=== PATIENT | female | born 1995 | race Two or more races ===

== ENCOUNTER 2016-10-29 05:30 | Inpatient (IN) | payer MEDICAID ==
[2016-10-29 06:06] VITALS: BP 105/75
[2016-10-29] MEDS ORDERED: Maalox 30 mL Cup PO PRN (10:38)
[2016-10-29] MEDS ORDERED: Morphine Sulfate 2 mg/mL 1mL Syr IVP PRN (10:38)
[2016-10-29] MEDS: D5-0.45NS 1,000 ML IV SCH ×2 (11:08→22:40)
[2016-10-29] MEDS: Ampicillin Sodium/Sulbactam 3 GM in Sodium Chloride 0.9% 100 ML IV SCH ×2 (14:02→22:37)
--- NOTE | 2016-10-29 17:54 | Internal Medicine Prog Note ---
Internal Medicine Subjective - Subjective Service Date: 10/29/16 ([facility] [id number]) Internal Medicine Objective - Physical Exam Vitals and I&O: Vital Signs Temp 98.9 F 10/29/16 16:00 Pulse 102 10/29/16 16:00 Resp 18 10/29/16 16:00 BP 120/73 10/29/16 16:00 Pulse Ox 99 10/29/16 16:00 Intake & Output 10/28/16 10/29/16 10/29/16 18:59 06:59 18:59 Intake Total 100 Balance 100 Weight (lbs) 179 lb Intake: Oral 100 Other: # Voids 1 Active Medications: Current Medications Al Hydrox/Mg Hydrox/Simethicone (Maalox) 30 ml PO Q6HR PRN PRN Reason: Constipation Stop: 12/28/16 10:37 Heparin Sodium (Porcine) (Heparin) 5,000 units SUBQ Q12HR [facility] Stop: 12/28/16 20:59 Dextrose/Sodium Chloride (D5-0.45ns) 1,000 mls @ 100 mls/hr IV .Q10H [facility] Stop: 12/28/16 09:35 Last Admin: 10/29/16 11:08 Dose: 100 mls/hr Ampicillin Sodium/Sulbactam (Sodium 3 gm/ Sodium Chloride) 100 mls @ 100 mls/ hr IV Q8HRT [facility] Stop: 12/28/16 14:59 Last Admin: 10/29/16 14:02 Dose: 100 mls/hr Ibuprofen (Motrin) 400 mg PO TID PRN PRN Reason: Fever > 101 Stop: 12/28/16 13:59 Morphine Sulfate (Morphine) 2 mg IVP Q4HR PRN PRN Reason: Pain (Moderate) Stop: 12/28/16 10:37 Ondansetron HCl (Zofran) 4 mg IV Q8H PRN PRN Reason: Nausea / Vomiting Stop: 12/28/16 10:37 Zolpidem Tartrate (Ambien) 10 mg PO HS PRN PRN Reason: Insomnia Stop: 12/28/16 10:37 Internal Medicine Assmt/Plan - Assessment Assessment: ELEVATED LFT'S ABDOMINAL PAIN NAUSEA JAUNDICE ACUTE FEBRILE ILLNESS HYPOKALEMIA
--- NOTE | 2016-10-29 20:23 | History & Physical ---
CHIEF COMPLAINT: Jaundice associated with nausea, vomiting and abdominal pain. HISTORY OF PRESENT ILLNESS: This is a 21-year-old female who is a direct admit from [facility]. According to the patient, she has been having a 3 week history of abdominal pain off and on, associated with ____. The patient states that she started to develop yellowish discoloration in her eyes. The patient stated, yesterday, the patient started to develop a fever and her abdominal pain started to be unbearable. For this reason, she brought herself. The patient was brought to [facility] ER. Two days ago she noticed that her urine started to become dark yellow. The patient denied any vomiting, but she stated that she has nausea. She cannot take in solid foods. PAST MEDICAL HISTORY: Congenital bilateral atresia. 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 ALLERGIES: ACETAMINOPHEN. FAMILY HISTORY: Grandmother had hepatitis. REVIEW OF SYSTEMS: GENERAL: Denies any fever, any chills, but complains of nausea. CARDIOVASCULAR: Denies any chest pain. RESPIRATORY: Denies any shortness of breath. GASTROINTESTINAL: Denies any vomiting, but complains of nausea and abdominal pain. GENITOURINARY: Denies any dysuria. All other systems are reviewed by me and are negative. SOCIAL HISTORY: The patient is well developed, well nourished, no acute distress. VITAL SIGNS: Temperature 98.9, heart rate 102, blood pressure 120/73, respirations 18, O2 99%. HEENT: Head; normocephalic, atraumatic. NECK: Supple. No mass. LUNGS: Clear bilaterally upon auscultation. HEART: Regular rate and rhythm. No murmurs or gallops. SKIN: Intact to touch. ABDOMEN: Soft, nontender, nondistended. Positive bowel sounds in all 4 quadrants. LABORATORY DATA: Results here at [place], currently pending, but the laboratory results from [place] are the following: WBC 7.8, H and H 12.9 and 36.2. Sodium 134, potassium 3.3, chloride of 104, CO2 24, BUN 7, creatinine 0.70. Liver function, total bilirubin of 1.4. ASSESSMENT: Elevated liver functions tests, jaundice, abdominal pain and acute febrile illness. PLAN: The patient will be admitted to the Med/Surg Unit. The patient will have a consultation with Dr. Yung. The patient will be kept as a full liquid diet. Also, a CT of the abdomen and pelvis will be done without contrast. CBC, CMP, we will also check the patient's ____ level as well. The patient will be kept on IV fluids for hydration also on IV antibiotics of ampicillin. We will continue to monitor the patient. JOB# [id number]
--- NOTE | 2016-10-30 05:27 | Consultation ---
REASON FOR CONSULTATION: Abnormal liver enzyme. HISTORY OF PRESENT ILLNESS: This consult was obtained through the courtesy of Dr. Vaughn for this 21-year-old with history of biliary atresia status post surgery as an twice who was doing okay and she was followed at [facility] . After that, she was not following and then she started to see our clinic in [place] and see a gastroenterology at [place]. She would have an attack every year or so of nausea, vomiting, abdominal pain, jaundice, but it will resolve spontaneously. She started getting sick several weeks ago, went to [place], labs were okay, then she was seen at a clinic . Labs were okay, so she was sent home, then she became sick again yesterday, so she went to the hospital at this time liver enzymes were elevated, so the patient was transferred here for further management. The patient still feeling sick with nausea, vomiting and abdominal pain. No hematemesis, melena or hematochezia. PAST MEDICAL HISTORY: Biliary atresia. PAST SURGICAL HISTORY: Biliary atresia surgery twice. SOCIAL HISTORY: Nonsmoker, alcoholic, IV drug abuser. FAMILY HISTORY: Noncontributory. ALLERGIES: Tylenol. MEDICATIONS: Occasionally take ibuprofen, but on a frequent basis for headache. REVIEW OF SYSTEMS: No weight loss. No hematemesis, melena or hematochezia. PHYSICAL EXAMINATION: GENERAL: The patient is awake, oriented to self, place, and time, in mild distress. VITAL SIGNS: Blood pressure is 109/71, heart rate 86, respiratory rate 19, temperature is 98.6. HEAD AND NECK: Pupils reactive to light and accommodation. Extraocular muscles intact. Sclerae are anicteric. Conjunctivae not pale. Oral cavity, no lesion. NECK: Supple, no jugular venous distention, no carotid bruit or lymph node. CHEST: Good respiratory movements. LUNGS: Clear to auscultation. CARDIOVASCULAR: Regular rate and rhythm. No murmur or gallop. ABDOMEN: Soft, positive bowel sounds. EXTREMITIES: Lower extremities, no edema. CENTRAL NERVOUS SYSTEM: Grossly nonfocal. LABORATORY DATA: From [place] showed normal white count of 6.3, platelets were 194, ALT was 311, AST was 125, bilirubin is 6.8, alkaline phosphatase 288. IMPRESSION: A 21-year-old with history of biliary atresia presented with jaundice and abnormal liver enzymes. ASSESSMENT AND PLAN: Jaundice, abnormal liver enzymes, rule out cholangitis. The patient needs further evaluation at the tertiary center for follow up of the surgery and biliary atresia so might need endoscopic ultrasound. She will need workup for chronic liver problems. She might need more visualization of biliary tree, was started with an MRCP here. Will start with IV fluids, liquid diet. Recheck labs in the morning. Started on antibiotics. We will start with Unasyn then further recommendations to follow. Thank you, Dr. Vaughn for allowing me to participate in the care of the patient. If you have any further questions, please let me know. JOB# [id number] KAYLI
[2016-10-30 06:08] LABS: % BASOPHILS 0.7 % (0.0-2.0); % LYMPHOCYTES 31.1 % (20.0-50.0); % MONOCYTES 12.5 % (2.0-10.0); % NEUTROPHILS 53.7 % (40.0-80.0); HEMATOCRIT 35.4 % (35.0-45.0); HEMOGLOBIN 12.2 gm/dL (11.7-15.5); MEAN CELL VOLUME 94.3 fl (81-100); MEAN CORPUSCULAR HEMOGLOBIN 32.6 pg (27.0-31.0); MEAN CORPUSCULAR HGB CONC 34.5 pg (28.0-36.0); MEAN PLATELET VOLUME 6.9 fl; NEUTROPHILE ABSOLUTE 2.5 Th/cmm (1.8-8.0); PLATELET COUNT 196 Th/cmm (150-400); RED BLOOD COUNT 3.75 Mil/cmm (3.80-5.10); WHITE BLOOD COUNT 4.6 Th/cmm (4.8-10.8)
[2016-10-30 06:50] LABS: ALKALINE PHOSPHATASE 241 U/L (34-104); ANION GAP 6.7 (7.0-16.0); BUN - UREA NITROGEN 7 mg/dL (7-25); CALCIUM SERUM 9.2 mg/dL (8.6-10.3); CARBON DIOXIDE 25.3 mEq/L (21.0-31.0); CHLORIDE 104 mEq/L (98-107); CREATININE - SERUM 0.5 mg/dL (0.6-1.2); GLUCOSE 104 mg/dL (70-105); LIPASE 16 U/L (11-82); SGOT 82 U/L (13-39); SGPT/ALT 215 U/L (7-52); SODIUM SERUM 133 mEq/L (136-145)
[2016-10-30 06:53] LABS: INR 1.05 (0.5-1.4); PROTHROMBIN TIME (TEST) 10.4 SECONDS (9.5-11.5)
[2016-10-30] MEDS: Ampicillin Sodium/Sulbactam 3 GM in Sodium Chloride 0.9% 100 ML IV SCH ×3 (07:30→22:43)
--- NOTE | 2016-10-30 12:04 | Internal Medicine Prog Note ---
Internal Medicine Subjective - Subjective Service Date: 10/30/16 (patient currently at [facility] for MRCP, per nursing staff patient had x1 episode of nausea denied any abdominal pain ) Internal Medicine Objective - Results Result Diagrams: 10/30/16 05:50 10/30/16 05:50 Recent Labs: Laboratory Last Values WBC 4.6 Th/cmm (4.8-10.8) L 10/30/16 05:50 RBC 3.75 Mil/cmm (3.80-5.10) L 10/30/16 05:50 Hgb 12.2 gm/dL (11.7-15.5) 10/30/16 05:50 Hct 35.4 % (35.0-45.0) 10/30/16 05:50 MCV 94.3 fl (81-100) 10/30/16 05:50 MCH 32.6 pg (27.0-31.0) H 10/30/16 05:50 MCHC Differential 34.5 pg (28.0-36.0) 10/30/16 05:50 RDW 13.0 % (11.5-20.0) 10/30/16 05:50 Plt Count 196 Th/cmm (150-400) 10/30/16 05:50 MPV 6.9 fl 10/30/16 05:50 Neutrophils % 53.7 % (40.0-80.0) 10/30/16 05:50 Lymphocytes % 31.1 % (20.0-50.0) 10/30/16 05:50 Monocytes % 12.5 % (2.0-10.0) H 10/30/16 05:50 Eosinophils % 2.0 % (0.0-5.0) 10/30/16 05:50 Basophils % 0.7 % (0.0-2.0) 10/30/16 05:50 PT 10.4 SECONDS (9.5-11.5) 10/30/16 05:50 INR 1.05 (0.5-1.4) 10/30/16 05:50 PTT (Actin FS) 30.9 SECONDS (26.0-38.0) 10/30/16 05:50 Sodium 133 mEq/L (136-145) L 10/30/16 05:50 Potassium 3.0 mEq/L (3.5-5.1) L 10/30/16 05:50 Chloride 104 mEq/L (98-107) 10/30/16 05:50 Carbon Dioxide 25.3 mEq/L (21.0-31.0) 10/30/16 05:50 Anion Gap 6.7 (7.0-16.0) L 10/30/16 05:50 BUN 7 mg/dL (7-25) 10/30/16 05:50 Creatinine 0.5 mg/dL (0.6-1.2) L 10/30/16 05:50 Est GFR ( Amer) > 60.0 ml/min (>90) 10/30/16 05:50 Est GFR (Non-Af Amer) > 60.0 ml/min 10/30/16 05:50 BUN/Creatinine Ratio 14.0 10/30/16 05:50 Glucose 104 mg/dL (70-105) 10/30/16 05:50 Calcium 9.2 mg/dL (8.6-10.3) 10/30/16 05:50 Total Bilirubin 3.0 mg/dL (0.3-1.0) H 10/30/16 05:50 AST 82 U/L (13-39) H 10/30/16 05:50 ALT 215 U/L (7-52) H 10/30/16 05:50 Alkaline Phosphatase 241 U/L (34-104) H 10/30/16 05:50 Total Protein 7.1 gm/dL (6.0-8.3) 10/30/16 05:50 Albumin 3.5 gm/dL (3.7-5.3) L 10/30/16 05:50 Globulin 3.6 gm/dL 10/30/16 05:50 Albumin/Globulin Ratio 1.0 (1.0-1.8) 10/30/16 05:50 Lipase 16 U/L (11-82) 10/30/16 05:50 - Physical Exam Vitals and I&O: Vital Signs Temp 98.4 F 10/30/16 08:00 Pulse 84 10/30/16 08:00 Resp 19 10/30/16 08:00 BP 103/53 10/30/16 08:00 Pulse Ox 98 10/30/16 08:00 Intake & Output 10/29/16 10/30/1610/30/17 18:59 06:59 18:59 Intake Total 800 1100 100 Balance 800 1100 100 Intake: Intake, IV Amount 100 1100 Ampicillin Sodium/ 100 100 Sulbactam 3 gm In Sodium Chloride 0.9% 100 ml @ 100 mls/hr IV Q8HRT [facility] Rx#:[id number] D5-0.45NS 1,000 ml @ 100 1000 mls/hr IV .Q10H [facility] Rx#: [id number] Oral 700 100 Other: # Voids 3 3 Active Medications: Current Medications Al Hydrox/Mg Hydrox/Simethicone (Maalox) 30 ml PO Q6HR PRN PRN Reason: Constipation Stop: 12/28/16 10:37 Heparin Sodium (Porcine) (Heparin) 5,000 units SUBQ Q12HR [facility] Stop: 12/28/16 20:59 Last Admin: 10/30/16 08:58 Dose: 5,000 units Dextrose/Sodium Chloride (D5-0.45ns) 1,000 mls @ 100 mls/hr IV .Q10H [facility] Stop: 12/28/16 09:35 Last Admin: 10/29/16 22:40 Dose: 100 mls/hr Ampicillin Sodium/Sulbactam (Sodium 3 gm/ Sodium Chloride) 100 mls @ 100 mls/ hr IV Q8HRT [facility] Stop: 12/28/16 14:59 Last Admin: 10/30/16 07:30 Dose: 100 mls/hr Ibuprofen (Motrin) 400 mg PO TID PRN PRN Reason: Fever > 101 Stop: 12/28/16 13:59 Morphine Sulfate (Morphine) 2 mg IVP Q4HR PRN PRN Reason: Pain (Moderate) Stop: 12/28/16 10:37 Ondansetron HCl (Zofran) 4 mg IV Q8H PRN PRN Reason: Nausea / Vomiting Stop: 12/28/16 10:37 Zolpidem Tartrate (Ambien) 10 mg PO HS PRN PRN Reason: Insomnia Stop: 12/28/16 10:37 Internal Medicine Assmt/Plan - Assessment Assessment: ELEVATED LFT'S ABDOMINAL PAIN NAUSEA JAUNDICE ACUTE FEBRILE ILLNESS HYPOKALEMIA
[2016-10-30] MEDS ORDERED: Potassium Chloride 20 mEq ER Tab PO ONE (12:06)
[2016-10-30] MEDS: D5-0.45NS 1,000 ML IV SCH ×2 (13:30→15:08)
--- NOTE | 2016-10-30 23:31 | Admit Criteria Form ---
Admit Criteria Forms - Admit Criteria Diagnosis: LIVER DISEASE COMPLICATIONS Clinical Indications for Admission to Inpatient Care (Place 'X' for any and all applicable criteria): Admission is indicated for patient with ANY ONE of the following(1)(2)(3)(4): [X ]I. Inpatient admission required rather than observation care because of ANY ONE of the following: [ ]a) Hemodynamic instability that is severe or persistent [ ]b) Severe electrolyte abnormalities requiring inpatient care [ ]c) Respiratory compromise that is severe or persistent [ ]d) Coagulation abnormal that is severe or persistent [ ]e) Severe pain requiring acute inpatient management [ ]f) Renal insufficiency that is severe or worsening [ ]g) Metabolic abnormalities (e.g., vomiting, hypoglycemia, acidosis) that are severe or persistent [ ]h) Hypovolemia or hypervolemia that is severe or persistent [ ]i) Absent bowel sounds with complete ileus(2) [ ]j) Signs of intestinal obstruction or peritonitis[A] [ ]k) IV fluid to replace significant ongoing losses (>3 L/m2 per day) [ ]l) Continuous IV infusion of anticoagulation, platelet inhibitor, vasoactive, or antiarrhythmic medication [ ]m) Percutaneous or open drainage (e.g., abscess, biliary tract) procedures [ ]n) Parenteral nutrition regimen that must be implemented on inpatient basis [ X]o) Other condition treatment or monitoring requiring inpatient admission [ ]II. Infected hepatic hydrothorax (eg, empyema) [ ]III. Hepatorenal syndrome (eg, elevated. creatinine with adequate volume status and negative evaluation for other cause)(8) [ ]IV. Spontaneous bacterial peritonitis [ ]V. Suspected infected ascites as indicated by ANY ONE of the following: [ ]a) Temp >100 degrees F (37.8 C ) [ ]b) High WBC count [ ]c) Abdominal pain or tenderness not relieved by paracentesis [ ]. New-onset or worsening hepatic encephalopathy(7) [ ]VII. Suspected fulminant hepatic failure (e.g., acute coagulopathy with hepatic encephalopathy or acute elevation of hepatic transaminases to more than 15 times baseline)(4) [ ]VIII. Acute hepatitis (e.g., ALT and AST at least 3 times baseline) with coagulopathy or severe jaundice as indicated by ANY ONE of the following(9)(10): [ ]a) Bilirubin >20 mg/dL (342 moles/L)(11) [ ]b) Acute elevation of PT to >50% above normal or INR >1.5 [ ] IX. Treatment of injury from hepatotoxin (e.g., acetaminophen) that requires inpatient monitoring [ ] X. Acute fatty liver of Extended stay beyond goal length of stay may be needed for(3)(7): [ ]a) Hepatorenal syndrome [ ]b) Severe or persistent hepatic encephalopathy [ ]c) Renal failure due to other causes associated with cirrhosis (e.g., hypovolemia) [ ]d) Severe or persistent coagulation abnormalities [ ]e) Refractory ascites, volume, or electrolyte abnormality [ ]f) Severe or persistent gastroesophageal bleeding [ ]g) Severe infectious or hepatotoxin-induced hepatitis (eg, acetaminophen) [ ]h) Hemodynamic instability that is severe or persistent The original [employer] content created by [employer] has been revised. The portions of the content which have been revised are identified through the use of italic text or in bold, and [facility] has neither reviewed nor approved the modified material. All other unmodified content is copyright [employer]. Please see references footnoted in the original [employer] [facility] edition 2016 Admit Criteria Met?: Yes
[2016-10-31 02:15] LABS: HEP B CORE IGM Negative (Negative); HEP C ANTIBODY <0.1 s/co ratio (0.0-0.9)
[2016-10-31 05:56] LABS: % BASOPHILS 0.8 % (0.0-2.0); % EOSINOPHILS 2.2 % (0.0-5.0); % LYMPHOCYTES 39.4 % (20.0-50.0); % MONOCYTES 10.4 % (2.0-10.0); % NEUTROPHILS 47.2 % (40.0-80.0); HEMATOCRIT 34.9 % (35.0-45.0); HEMOGLOBIN 12.2 gm/dL (11.7-15.5); MEAN CORPUSCULAR HEMOGLOBIN 32.6 pg (27.0-31.0); MEAN PLATELET VOLUME 6.8 fl; NEUTROPHILE ABSOLUTE 2.1 Th/cmm (1.8-8.0); PLATELET COUNT 182 Th/cmm (150-400); RED BLOOD COUNT 3.75 Mil/cmm (3.80-5.10); RED CELL DISTRIBUTION WIDTH 13.1 % (11.5-20.0); WHITE BLOOD COUNT 4.3 Th/cmm (4.8-10.8)
[2016-10-31 06:12] LABS: ANION GAP 10.5 (7.0-16.0); BUN - UREA NITROGEN 7 mg/dL (7-25); CALCIUM SERUM 9.2 mg/dL (8.6-10.3); CHLORIDE 105 mEq/L (98-107); CREATININE - SERUM 0.5 mg/dL (0.6-1.2); GLUCOSE 98 mg/dL (70-105); POTASSIUM SERUM 3.5 mEq/L (3.5-5.1); SODIUM SERUM 136 mEq/L (136-145)
[2016-10-31] MEDS: Ampicillin Sodium/Sulbactam 3 GM in Sodium Chloride 0.9% 100 ML IV SCH ×3 (06:42→23:40)
[2016-10-31] MEDS: D5-0.45NS 1,000 ML IV SCH ×2 (06:42→21:51)
--- NOTE | 2016-10-31 12:12 | Internal Medicine Prog Note ---
Internal Medicine Subjective - Subjective Service Date: 10/31/16 (awake, alert, c/o abdominal pain when eating denies any nausea, less jaundice in eyes ) Patient seen and examined:: with staff Patient is:: awake Per staff patient is:: no adverse event Internal Medicine Objective - Results Result Diagrams: 10/31/16 05:40 10/31/16 05:40 Recent Labs: Laboratory Last Values WBC 4.3 Th/cmm (4.8-10.8) L 10/31/16 05:40 RBC 3.75 Mil/cmm (3.80-5.10) L 10/31/16 05:40 Hgb 12.2 gm/dL (11.7-15.5) 10/31/16 05:40 Hct 34.9 % (35.0-45.0) L 10/31/16 05:40 MCV 93.0 fl (81-100) 10/31/16 05:40 MCH 32.6 pg (27.0-31.0) H 10/31/16 05:40 MCHC Differential 35.0 pg (28.0-36.0) 10/31/16 05:40 RDW 13.1 % (11.5-20.0) 10/31/16 05:40 Plt Count 182 Th/cmm (150-400) 10/31/16 05:40 MPV 6.8 fl 10/31/16 05:40 Neutrophils % 47.2 % (40.0-80.0) 10/31/16 05:40 Lymphocytes % 39.4 % (20.0-50.0) 10/31/16 05:40 Monocytes % 10.4 % (2.0-10.0) H 10/31/16 05:40 Eosinophils % 2.2 % (0.0-5.0) 10/31/16 05:40 Basophils % 0.8 % (0.0-2.0) 10/31/16 05:40 PT 10.4 SECONDS (9.5-11.5) 10/30/16 05:50 INR 1.05 (0.5-1.4) 10/30/16 05:50 PTT (Actin FS) 30.9 SECONDS (26.0-38.0) 10/30/16 05:50 Sodium 136 mEq/L (136-145) 10/31/16 05:40 Potassium 3.5 mEq/L (3.5-5.1) 10/31/16 05:40 Chloride 105 mEq/L (98-107) 10/31/16 05:40 Carbon Dioxide 24.0 mEq/L (21.0-31.0) 10/31/16 05:40 Anion Gap 10.5 (7.0-16.0) 10/31/16 05:40 BUN 7 mg/dL (7-25) 10/31/16 05:40 Creatinine 0.5 mg/dL (0.6-1.2) L 10/31/16 05:40 Est GFR ( Amer) > 60.0 ml/min (>90) 10/31/16 05:40 Est GFR (Non-Af Amer) > 60.0 ml/min 10/31/16 05:40 BUN/Creatinine Ratio 14.0 10/31/16 05:40 Glucose 98 mg/dL (70-105) 10/31/16 05:40 Calcium 9.2 mg/dL (8.6-10.3) 10/31/16 05:40 Total Bilirubin 3.0 mg/dL (0.3-1.0) H 10/30/16 05:50 AST 82 U/L (13-39) H 10/30/16 05:50 ALT 215 U/L (7-52) H 10/30/16 05:50 Alkaline Phosphatase 241 U/L (34-104) H 10/30/16 05:50 C-Reactive Protein 5.60 mg/dL (0.0-0.9) H 10/30/16 05:50 Total Protein 7.1 gm/dL (6.0-8.3) 10/30/16 05:50 Albumin 3.5 gm/dL (3.7-5.3) L 10/30/16 05:50 Globulin 3.6 gm/dL 10/30/16 05:50 Albumin/Globulin Ratio 1.0 (1.0-1.8) 10/30/16 05:50 Lipase 16 U/L (11-82) 10/30/16 05:50 Hepatitis A IgM Ab Negative (Negative) 10/29/16 11:23 Hep Bs Antigen Negative (Negative) 10/29/16 11:23 Hep B Core IgM Ab Negative (Negative) 10/29/16 11:23 Hepatitis C Antibody <0.1 s/co ratio (0.0-0.9) 10/29/16 11:23 - Physical Exam Vitals and I&O: Vital Signs Temp 97.8 F 10/31/16 11:24 Pulse 59 10/31/16 11:24 Resp 17 10/31/16 11:24 BP 135/55 10/31/16 11:24 Pulse Ox 99 10/31/16 11:24 Intake & Output 10/30/16 10/31/16 10/31/16 18:59 06:59 18:59 Intake Total 1300 1100 Balance 1300 1100 Intake: Intake, IV Amount 1200 1100 Ampicillin Sodium/ 200 100 Sulbactam 3 gm In Sodium Chloride 0.9% 100 ml @ 100 mls/hr IV Q8HRT [facility] Rx#:[id number] D5-0.45NS 1,000 ml @ 100 1000 mls/hr IV .Q10H [facility] Rx#: [id number] D5-0.45NS 1,000 ml @ 80 1000 mls/hr IV .[id number] [facility] Rx #:[id number] Oral 100 Other: # Voids 3 3 Active Medications: Current Medications Al Hydrox/Mg Hydrox/Simethicone (Maalox) 30 ml PO Q6HR PRN PRN Reason: Constipation Stop: 12/28/16 10:37 Heparin Sodium (Porcine) (Heparin) 5,000 units SUBQ Q12HR [facility] Stop: 12/28/16 20:59 Last Admin: 10/31/16 09:48 Dose: 5,000 units Ampicillin Sodium/Sulbactam (Sodium 3 gm/ Sodium Chloride) 100 mls @ 100 mls/ hr IV Q8HRT [facility] Stop: 12/28/16 14:59 Last Admin: 10/31/16 06:42 Dose: 100 mls/hr Dextrose/Sodium Chloride (D5-0.45ns) 1,000 mls @ 80 mls/hr IV .[id number] [facility] Stop: 12/29/16 13:49 Last Admin: 10/31/16 06:42 Dose: 80 mls/hr Ibuprofen (Motrin) 400 mg PO TID PRN PRN Reason: Fever > 101 Stop: 12/28/16 13:59 Morphine Sulfate (Morphine) 2 mg IVP Q4HR PRN PRN Reason: Pain (Moderate) Stop: 12/28/16 10:37 Ondansetron HCl (Zofran) 4 mg IV Q8H PRN PRN Reason: Nausea / Vomiting Stop: 12/28/16 10:37 Zolpidem Tartrate (Ambien) 10 mg PO HS PRN PRN Reason: Insomnia Stop: 12/28/16 10:37 General: alert HEENT: NC/AT, PERRLA Neck: Supple Lungs: CTAB Cardiovascular: RRR, Normal S1, Normal S2, without murmur Abdomen: soft non-tender Extremities: clear Internal Medicine Assmt/Plan - Assessment Assessment: ELEVATED LFT'S ABDOMINAL PAIN NAUSEA JAUNDICE ACUTE FEBRILE ILLNESS HYPOKALEMIA - Plan Plan: awaiting for mrcp results ivf for hydration gi to see patient
[2016-11-01 05:46] LABS: % BASOPHILS 0.4 % (0.0-2.0); % EOSINOPHILS 1.4 % (0.0-5.0); % LYMPHOCYTES 41.7 % (20.0-50.0); % MONOCYTES 10.3 % (2.0-10.0); % NEUTROPHILS 46.2 % (40.0-80.0); HEMATOCRIT 35.3 % (35.0-45.0); HEMOGLOBIN 12.2 gm/dL (11.7-15.5); MEAN CELL VOLUME 93.6 fl (81-100); MEAN CORPUSCULAR HEMOGLOBIN 32.2 pg (27.0-31.0); MEAN CORPUSCULAR HGB CONC 34.4 pg (28.0-36.0); MEAN PLATELET VOLUME 6.8 fl; NEUTROPHILE ABSOLUTE 2.1 Th/cmm (1.8-8.0); PLATELET COUNT 178 Th/cmm (150-400); RED BLOOD COUNT 3.77 Mil/cmm (3.80-5.10); RED CELL DISTRIBUTION WIDTH 12.9 % (11.5-20.0); WHITE BLOOD COUNT 4.7 Th/cmm (4.8-10.8)
[2016-11-01 06:13] LABS: ANION GAP 7.6 (7.0-16.0); BUN - UREA NITROGEN 7 mg/dL (7-25); BUN/CREATININE RATIO 11.7; CALCIUM SERUM 9.1 mg/dL (8.6-10.3); CARBON DIOXIDE 23.8 mEq/L (21.0-31.0); CHLORIDE 106 mEq/L (98-107); CREATININE - SERUM 0.6 mg/dL (0.6-1.2); GLUCOSE 97 mg/dL (70-105); POTASSIUM SERUM 3.4 mEq/L (3.5-5.1); SODIUM SERUM 134 mEq/L (136-145)
[2016-11-01 06:14] LABS: ALB/GLOB RATIO 0.9 (1.0-1.8); BILIRUBIN,DIRECT 1.02 mg/dL (0.0-0.2); BILIRUBIN,TOTAL 1.9 mg/dL (0.3-1.0)
[2016-11-01] MEDS: Ampicillin Sodium/Sulbactam 3 GM in Sodium Chloride 0.9% 100 ML IV SCH ×3 (07:01→22:35)
--- NOTE | 2016-11-01 12:36 | Internal Medicine Prog Note ---
Internal Medicine Subjective - Subjective Service Date: 11/01/16 Patient seen and examined:: with staff Patient is:: awake Per staff patient is:: no adverse event Internal Medicine Objective - Results Result Diagrams: 11/01/16 05:22 11/01/16 05:22 Recent Labs: Laboratory Last Values WBC 4.7 Th/cmm (4.8-10.8) L 11/01/16 05:22 RBC 3.77 Mil/cmm (3.80-5.10) L 11/01/16 05:22 Hgb 12.2 gm/dL (11.7-15.5) 11/01/16 05:22 Hct 35.3 % (35.0-45.0) 11/01/16 05:22 MCV 93.6 fl (81-100) 11/01/16 05:22 MCH 32.2 pg (27.0-31.0) H 11/01/16 05:22 MCHC Differential 34.4 pg (28.0-36.0) 11/01/16 05:22 RDW 12.9 % (11.5-20.0) 11/01/16 05:22 Plt Count 178 Th/cmm (150-400) 11/01/16 05:22 MPV 6.8 fl 11/01/16 05:22 Neutrophils % 46.2 % (40.0-80.0) 11/01/16 05:22 Lymphocytes % 41.7 % (20.0-50.0) 11/01/16 05:22 Monocytes % 10.3 % (2.0-10.0) H 11/01/16 05:22 Eosinophils % 1.4 % (0.0-5.0) 11/01/16 05:22 Basophils % 0.4 % (0.0-2.0) 11/01/16 05:22 PT 10.4 SECONDS (9.5-11.5) 10/30/16 05:50 INR 1.05 (0.5-1.4) 10/30/16 05:50 PTT (Actin FS) 30.9 SECONDS (26.0-38.0) 10/30/16 05:50 Sodium 134 mEq/L (136-145) L 11/01/16 05:22 Potassium 3.4 mEq/L (3.5-5.1) L 11/01/16 05:22 Chloride 106 mEq/L (98-107) 11/01/16 05:22 Carbon Dioxide 23.8 mEq/L (21.0-31.0) 11/01/16 05:22 Anion Gap 7.6 (7.0-16.0) 11/01/16 05:22 BUN 7 mg/dL (7-25) 11/01/16 05:22 Creatinine 0.6 mg/dL (0.6-1.2) 11/01/16 05:22 Est GFR ( Amer) > 60.0 ml/min (>90) 11/01/16 05:22 Est GFR (Non-Af Amer) > 60.0 ml/min 11/01/16 05:22 BUN/Creatinine Ratio 11.7 11/01/16 05:22 Glucose 97 mg/dL (70-105) 11/01/16 05:22 Calcium 9.1 mg/dL (8.6-10.3) 11/01/16 05:22 Total Bilirubin 1.9 mg/dL (0.3-1.0) H 11/01/16 05:22 Direct Bilirubin 1.02 mg/dL (0.0-0.2) H 11/01/16 05:22 AST 54 U/L (13-39) H 11/01/16 05:22 ALT 149 U/L (7-52) H 11/01/16 05:22 Alkaline Phosphatase 210 U/L (34-104) H 11/01/16 05:22 C-Reactive Protein 5.60 mg/dL (0.0-0.9) H 10/30/16 05:50 Total Protein 7.1 gm/dL (6.0-8.3) 11/01/16 05:22 Albumin 3.3 gm/dL (3.7-5.3) L 11/01/16 05:22 Globulin 3.8 gm/dL 11/01/16 05:22 Albumin/Globulin Ratio 0.9 (1.0-1.8) L 11/01/16 05:22 Lipase 16 U/L (11-82) 10/30/16 05:50 Hepatitis A IgM Ab Negative (Negative) 10/29/16 11:23 Hep Bs Antigen Negative (Negative) 10/29/16 11:23 Hep B Core IgM Ab Negative (Negative) 10/29/16 11:23 Hepatitis C Antibody <0.1 s/co ratio (0.0-0.9) 10/29/16 11:23 - Physical Exam Vitals and I&O: Vital Signs Temp 98.0 F 11/01/16 07:00 Pulse 69 11/01/16 07:00 Resp 16 11/01/16 07:00 BP 110/63 11/01/16 07:00 Pulse Ox 97 11/01/16 03:58 Intake & Output 10/31/16 11/01/16 11/01/16 18:59 06:59 18:59 Intake Total 200 1200 Balance 200 1200 Intake: Intake, IV Amount 200 1100 Ampicillin Sodium/ 200 100 Sulbactam 3 gm In Sodium Chloride 0.9% 100 ml @ 100 mls/hr IV Q8HRT [facility] Rx#:[id number] D5-0.45NS 1,000 ml @ 80 1000 mls/hr IV .[id number] [facility] Rx #:[id number] Oral 100 Other: # Voids 3 Active Medications: Current Medications Al Hydrox/Mg Hydrox/Simethicone (Maalox) 30 ml PO Q6HR PRN PRN Reason: Constipation Stop: 12/28/16 10:37 Heparin Sodium (Porcine) (Heparin) 5,000 units SUBQ Q12HR [facility] Stop: 12/28/16 20:59 Last Admin: 11/01/16 09:32 Dose: 5,000 units Ampicillin Sodium/Sulbactam (Sodium 3 gm/ Sodium Chloride) 100 mls @ 100 mls/ hr IV Q8HRT [facility] Stop: 12/28/16 14:59 Last Admin: 11/01/16 07:01 Dose: 100 mls/hr Dextrose/Sodium Chloride (D5-0.45ns) 1,000 mls @ 80 mls/hr IV .[id number] [facility] Stop: 12/29/16 13:49 Last Admin: 10/31/16 21:51 Dose: 80 mls/hr Ibuprofen (Motrin) 400 mg PO TID PRN PRN Reason: Fever > 101 Stop: 12/28/16 13:59 Morphine Sulfate (Morphine) 2 mg IVP Q4HR PRN PRN Reason: Pain (Moderate) Stop: 12/28/16 10:37 Ondansetron HCl (Zofran) 4 mg IV Q8H PRN PRN Reason: Nausea / Vomiting Stop: 12/28/16 10:37 Zolpidem Tartrate (Ambien) 10 mg PO HS PRN PRN Reason: Insomnia Stop: 12/28/16 10:37 General: alert HEENT: NC/AT, PERRLA Neck: Supple Lungs: CTAB Cardiovascular: RRR, Normal S1, Normal S2, without murmur Abdomen: soft non-tender Neurological: no change Internal Medicine Assmt/Plan - Assessment Assessment: ELEVATED LFT'S ABDOMINAL PAIN NAUSEA JAUNDICE ACUTE FEBRILE ILLNESS HYPOKALEMIA - Plan Plan: dc today
--- NOTE | 2016-11-01 13:29 | Internal Medicine Prog Note ---
Internal Medicine Subjective - Subjective Service Date: 11/01/16 (DC SUMMARY [id number]) Internal Medicine Objective - Results Result Diagrams: 11/01/16 05:22 11/01/16 05:22 Recent Labs: Laboratory Last Values WBC 4.7 Th/cmm (4.8-10.8) L 11/01/16 05:22 RBC 3.77 Mil/cmm (3.80-5.10) L 11/01/16 05:22 Hgb 12.2 gm/dL (11.7-15.5) 11/01/16 05:22 Hct 35.3 % (35.0-45.0) 11/01/16 05:22 MCV 93.6 fl (81-100) 11/01/16 05:22 MCH 32.2 pg (27.0-31.0) H 11/01/16 05:22 MCHC Differential 34.4 pg (28.0-36.0) 11/01/16 05:22 RDW 12.9 % (11.5-20.0) 11/01/16 05:22 Plt Count 178 Th/cmm (150-400) 11/01/16 05:22 MPV 6.8 fl 11/01/16 05:22 Neutrophils % 46.2 % (40.0-80.0) 11/01/16 05:22 Lymphocytes % 41.7 % (20.0-50.0) 11/01/16 05:22 Monocytes % 10.3 % (2.0-10.0) H 11/01/16 05:22 Eosinophils % 1.4 % (0.0-5.0) 11/01/16 05:22 Basophils % 0.4 % (0.0-2.0) 11/01/16 05:22 PT 10.4 SECONDS (9.5-11.5) 10/30/16 05:50 INR 1.05 (0.5-1.4) 10/30/16 05:50 PTT (Actin FS) 30.9 SECONDS (26.0-38.0) 10/30/16 05:50 Sodium 134 mEq/L (136-145) L 11/01/16 05:22 Potassium 3.4 mEq/L (3.5-5.1) L 11/01/16 05:22 Chloride 106 mEq/L (98-107) 11/01/16 05:22 Carbon Dioxide 23.8 mEq/L (21.0-31.0) 11/01/16 05:22 Anion Gap 7.6 (7.0-16.0) 11/01/16 05:22 BUN 7 mg/dL (7-25) 11/01/16 05:22 Creatinine 0.6 mg/dL (0.6-1.2) 11/01/16 05:22 Est GFR ( Amer) > 60.0 ml/min (>90) 11/01/16 05:22 Est GFR (Non-Af Amer) > 60.0 ml/min 11/01/16 05:22 BUN/Creatinine Ratio 11.7 11/01/16 05:22 Glucose 97 mg/dL (70-105) 11/01/16 05:22 Calcium 9.1 mg/dL (8.6-10.3) 11/01/16 05:22 Total Bilirubin 1.9 mg/dL (0.3-1.0) H 11/01/16 05:22 Direct Bilirubin 1.02 mg/dL (0.0-0.2) H 11/01/16 05:22 AST 54 U/L (13-39) H 11/01/16 05:22 ALT 149 U/L (7-52) H 11/01/16 05:22 Alkaline Phosphatase 210 U/L (34-104) H 11/01/16 05:22 C-Reactive Protein 5.60 mg/dL (0.0-0.9) H 10/30/16 05:50 Total Protein 7.1 gm/dL (6.0-8.3) 11/01/16 05:22 Albumin 3.3 gm/dL (3.7-5.3) L 11/01/16 05:22 Globulin 3.8 gm/dL 11/01/16 05:22 Albumin/Globulin Ratio 0.9 (1.0-1.8) L 11/01/16 05:22 Lipase 16 U/L (11-82) 10/30/16 05:50 Hepatitis A IgM Ab Negative (Negative) 10/29/16 11:23 Hep Bs Antigen Negative (Negative) 10/29/16 11:23 Hep B Core IgM Ab Negative (Negative) 10/29/16 11:23 Hepatitis C Antibody <0.1 s/co ratio (0.0-0.9) 10/29/16 11:23 - Physical Exam Vitals and I&O: Vital Signs Temp 96.6 F 11/01/16 12:00 Pulse 67 11/01/16 12:00 Resp 20 11/01/16 12:00 BP 137/68 11/01/16 12:00 Pulse Ox 99 11/01/16 12:00 Intake & Output 10/31/16 11/01/16 11/01/16 18:59 06:59 18:59 Intake Total 200 1200 Balance 200 1200 Intake: Intake, IV Amount 200 1100 Ampicillin Sodium/ 200 100 Sulbactam 3 gm In Sodium Chloride 0.9% 100 ml @ 100 mls/hr IV Q8HRT [facility] Rx#:[id number] D5-0.45NS 1,000 ml @ 80 1000 mls/hr IV .[id number] [facility] Rx #:[id number] Oral 100 Other: # Voids 3 Active Medications: Current Medications Al Hydrox/Mg Hydrox/Simethicone (Maalox) 30 ml PO Q6HR PRN PRN Reason: Constipation Stop: 12/28/16 10:37 Heparin Sodium (Porcine) (Heparin) 5,000 units SUBQ Q12HR [facility] Stop: 12/28/16 20:59 Last Admin: 11/01/16 09:32 Dose: 5,000 units Ampicillin Sodium/Sulbactam (Sodium 3 gm/ Sodium Chloride) 100 mls @ 100 mls/ hr IV Q8HRT [facility] Stop: 12/28/16 14:59 Last Admin: 11/01/16 07:01 Dose: 100 mls/hr Dextrose/Sodium Chloride (D5-0.45ns) 1,000 mls @ 80 mls/hr IV .[id number] [facility] Stop: 12/29/16 13:49 Last Admin: 10/31/16 21:51 Dose: 80 mls/hr Ibuprofen (Motrin) 400 mg PO TID PRN PRN Reason: Fever > 101 Stop: 12/28/16 13:59 Morphine Sulfate (Morphine) 2 mg IVP Q4HR PRN PRN Reason: Pain (Moderate) Stop: 12/28/16 10:37 Ondansetron HCl (Zofran) 4 mg IV Q8H PRN PRN Reason: Nausea / Vomiting Stop: 12/28/16 10:37 Zolpidem Tartrate (Ambien) 10 mg PO HS PRN PRN Reason: Insomnia Stop: 12/28/16 10:37 Internal Medicine Assmt/Plan - Assessment Assessment: ELEVATED LFT'S ABDOMINAL PAIN NAUSEA JAUNDICE ACUTE FEBRILE ILLNESS HYPOKALEMIA
[2016-11-01] MEDS: D5-0.45NS 1,000 ML IV SCH (18:27)
--- NOTE | 2016-11-01 18:48 | Diagnostic Imaging Report ---
Ultrasound abdomen HISTORY: Elevated liver function tests. History of Kasai procedure for biliary atresia., History of cholecystectomy COMPARISON: MRCP on 11/01/2016 Technique: Sonography of the abdomen was performed in multiple planes. FINDINGS: Exam is limited due to bowel gas. The liver demonstrates increased echogenicity with no evidence of focal lesions. The liver measures 17.4 cm. The patient is status post cholecystectomy. The common bile duct measures 7 mm. Evaluation of the pancreas is limited due to bowel gas. The right kidney measures 11.9 cm. No evidence of focal lesions or hydronephrosis. The left kidney measures 12.0 cm. No evidence of focal lesions or hydronephrosis. The spleen measures 13.1 cm. IMPRESSION: Nonvisualization of the gallbladder compatible with history of cholecystectomy and Kasai procedure. Mildly prominent common bile measuring up to 7 mm. This may be related to patient's history of cholecystectomy and Kasai procedure. Mild hepatomegaly with increased echogenicity which may be due to fatty infiltration Mild splenomegaly.
[2016-11-02 07:09] LABS: ALB/GLOB RATIO 0.9 (1.0-1.8); BILIRUBIN,DIRECT 0.76 mg/dL (0.0-0.2); BILIRUBIN,TOTAL 1.8 mg/dL (0.3-1.0)
--- NOTE | 2016-11-02 10:05 | Discharge Summary ---
FINAL DIAGNOSES: Elevated LFTs, which is improved; jaundice, resolved; abdominal pain and acute febrile illness, which has resolved as well. HISTORY OF PRESENT ILLNESS: This is a 21-year-old female who has a direct admission from [facility]. According to the patient, she has been having a 3-week history of abdominal pain off and on. The patient states that she started developing yellowish discoloration in her eyes. The patient stated yesterday, the patient started to develop a fever and abdominal pain that was unbearable. For this reason, the patient brought herself to [facility] ER, the patient also states two days ago, she noticed that her urine started to become dark yellow, the patient denied any vomiting, but stated that she has nausea. Due to insurance purposes, the patient was admitted to [facility]. PHYSICAL EXAMINATION: GENERAL: The patient is well developed, well nourished, in no acute distress. VITAL SIGNS: Stable. HEENT: Head, normocephalic, atraumatic. NECK: Supple. No mass. LUNGS: Clear bilaterally to auscultation. HEART: Regular rate and rhythm. No murmurs or gallops. SKIN: Intact, warm to touch. ABDOMEN: Soft, nontender, nondistended. Positive bowel sounds in all 4 quadrants. HOSPITAL COURSE: During the hospital stay, the patient was admitted to the med/surg unit. The patient had a consultation with Dr. Yung. The patient had MRCP done and it was negative. The patient's LFTs level were being monitored as well, AST was 82, ALT 215, alkaline phosphatase was 241. ____[id number], AST was 54, ALT 149 and ____210. The patient was kept on IV fluids for hydration. The patient's potassium was also replaced. The patient did not have any nausea or any abdominal pain during the hospital stay. For this reason, the patient was stable and stable for discharge. CONDITION UPON DISCHARGE: Fair. DISPOSITION: The patient is going home, educated the patient the importance of following with the PCP in 1 week. JOB# [id number]
--- NOTE | 2016-11-02 13:05 | General Progress Note ---
Subjective - Review of Systems Service Date: 11/02/16 Subjective: Feels better. Joel diet. Objective - Results Result Diagrams: 11/01/16 05:22 11/01/16 05:22 Recent Labs: Laboratory Last Values WBC 4.7 Th/cmm (4.8-10.8) L 11/01/16 05:22 RBC 3.77 Mil/cmm (3.80-5.10) L 11/01/16 05:22 Hgb 12.2 gm/dL (11.7-15.5) 11/01/16 05:22 Hct 35.3 % (35.0-45.0) 11/01/16 05:22 MCV 93.6 fl (81-100) 11/01/16 05:22 MCH 32.2 pg (27.0-31.0) H 11/01/16 05:22 MCHC Differential 34.4 pg (28.0-36.0) 11/01/16 05:22 RDW 12.9 % (11.5-20.0) 11/01/16 05:22 Plt Count 178 Th/cmm (150-400) 11/01/16 05:22 MPV 6.8 fl 11/01/16 05:22 Neutrophils % 46.2 % (40.0-80.0) 11/01/16 05:22 Lymphocytes % 41.7 % (20.0-50.0) 11/01/16 05:22 Monocytes % 10.3 % (2.0-10.0) H 11/01/16 05:22 Eosinophils % 1.4 % (0.0-5.0) 11/01/16 05:22 Basophils % 0.4 % (0.0-2.0) 11/01/16 05:22 PT 10.4 SECONDS (9.5-11.5) 10/30/16 05:50 INR 1.05 (0.5-1.4) 10/30/16 05:50 PTT (Actin FS) 30.9 SECONDS (26.0-38.0) 10/30/16 05:50 Sodium 134 mEq/L (136-145) L 11/01/16 05:22 Potassium 3.4 mEq/L (3.5-5.1) L 11/01/16 05:22 Chloride 106 mEq/L (98-107) 11/01/16 05:22 Carbon Dioxide 23.8 mEq/L (21.0-31.0) 11/01/16 05:22 Anion Gap 7.6 (7.0-16.0) 11/01/16 05:22 BUN 7 mg/dL (7-25) 11/01/16 05:22 Creatinine 0.6 mg/dL (0.6-1.2) 11/01/16 05:22 Est GFR ( Amer) > 60.0 ml/min (>90) 11/01/16 05:22 Est GFR (Non-Af Amer) > 60.0 ml/min 11/01/16 05:22 BUN/Creatinine Ratio 11.7 11/01/16 05:22 Glucose 97 mg/dL (70-105) 11/01/16 05:22 Calcium 9.1 mg/dL (8.6-10.3) 11/01/16 05:22 Total Bilirubin 1.8 mg/dL (0.3-1.0) H 11/02/16 05:42 Direct Bilirubin 0.76 mg/dL (0.0-0.2) H 11/02/16 05:42 AST 53 U/L (13-39) H 11/02/16 05:42 ALT 139 U/L (7-52) H 11/02/16 05:42 Alkaline Phosphatase 212 U/L (34-104) H 11/02/16 05:42 C-Reactive Protein 5.60 mg/dL (0.0-0.9) H 10/30/16 05:50 Total Protein 7.5 gm/dL (6.0-8.3) 11/02/16 05:42 Albumin 3.5 gm/dL (3.7-5.3) L 11/02/16 05:42 Globulin 4.0 gm/dL 11/02/16 05:42 Albumin/Globulin Ratio 0.9 (1.0-1.8) L 11/02/16 05:42 Lipase 16 U/L (11-82) 10/30/16 05:50 Hepatitis A IgM Ab Negative (Negative) 10/29/16 11:23 Hep Bs Antigen Negative (Negative) 10/29/16 11:23 Hep B Core IgM Ab Negative (Negative) 10/29/16 11:23 Hepatitis C Antibody <0.1 s/co ratio (0.0-0.9) 10/29/16 11:23 - Physical Exam Vitals and I&O: Vital Signs Temp 98.2 F 11/02/16 12:00 Pulse 74 11/02/16 12:00 Resp 17 11/02/16 12:00 BP 110/65 11/02/16 12:00 Pulse Ox 96 11/02/16 08:00 Intake & Output 11/01/16 11/02/16 11/02/16 18:59 06:59 18:59 Intake Total 1100 100 Balance 1100 100 Intake: Intake, IV Amount 1100 100 Ampicillin Sodium/ 100 100 Sulbactam 3 gm In Sodium Chloride 0.9% 100 ml @ 100 mls/hr IV Q8HRT [facility] Rx#:[id number] D5-0.45NS 1,000 ml @ 80 1000 mls/hr IV .[id number] [facility] Rx #:[id number] Other: # Voids 3 Active Medications: Current Medications Al Hydrox/Mg Hydrox/Simethicone (Maalox) 30 ml PO Q6HR PRN PRN Reason: Constipation Stop: 12/28/16 10:37 Heparin Sodium (Porcine) (Heparin) 5,000 units SUBQ Q12HR [facility] Stop: 12/28/16 20:59 Last Admin: 11/02/16 12:17 Dose: Not Given Ampicillin Sodium/Sulbactam (Sodium 3 gm/ Sodium Chloride) 100 mls @ 100 mls/ hr IV Q8HRT [facility] Stop: 12/28/16 14:59 Last Admin: 11/01/16 22:35 Dose: 100 mls/hr Dextrose/Sodium Chloride (D5-0.45ns) 1,000 mls @ 80 mls/hr IV .[id number] [facility] Stop: 12/29/16 13:49 Last Admin: 11/01/16 18:27 Dose: 80 mls/hr Ibuprofen (Motrin) 400 mg PO TID PRN PRN Reason: Fever > 101 Stop: 12/28/16 13:59 Morphine Sulfate (Morphine) 2 mg IVP Q4HR PRN PRN Reason: Pain (Moderate) Stop: 12/28/16 10:37 Ondansetron HCl (Zofran) 4 mg IV Q8H PRN PRN Reason: Nausea / Vomiting Stop: 12/28/16 10:37 Zolpidem Tartrate (Ambien) 10 mg PO HS PRN PRN Reason: Insomnia Stop: 12/28/16 10:37 General: Alert Neck: Supple Cardiovascular: Regular rate Lungs: Clear to auscultation Abdomen: Bowel sounds, Soft Assessment/Plan - Assessment Assessment: 1. Elevated LFTs with fevers and leukocytosis - likely low grade cholangitis - now better. 2. Hx biliary atresia s/p Kasai. 3. Hx cholecystectomy. - Plan Plan: 1. Antibiotics - to be completed at home - Cipro and Flagyl suggested. 2. Monitor liver labs - improving. 3. F/u with primary GI doctor as outpt - she sees Dr. Delgado. 4. GI rosales stable.
--- NOTE | 2016-11-02 21:45 | Discharge Summary ---
FINAL DIAGNOSES: Elevated liver function tests, possible cholangitis, jaundice which has resolved, no pain, acute febrile illness. HISTORY: This is a 21-year-old female essentially healthy with a complaint of abdominal pain and discoloration in the eyes. The patient was seen outside ER and transferred for continued care and treatment. PHYSICAL EXAMINATION: VITAL SIGNS: Blood pressure 118/64, respirations ____, temperature 98.6. GENERAL: Young female, morbidly obese. NECK: Supple. No mass. LUNGS: Equal breath sounds, few rhonchi. HEART: Regular rhythm without appreciable murmurs. ABDOMEN: Soft, nontender. EXTREMITIES: No clubbing, cyanosis or edema. HOSPITAL COURSE: The patient admitted to medical floor, continued on IV hydration. The patient was ____, IV antibiotic for possible cholangitis. MRCP was negative for any biliary obstruction. Repeat ultrasound showed cholecystectomy changes, possible fatty infiltration of the liver, mild splenomegaly. The patient was seen by GI and cleared for discharge. CONDITION ON DISCHARGE: Fair. DISCHARGE INSTRUCTIONS: The patient will be following with her primary care doctor as well as GI with ____, her usual GI specialist. JOB# [id number]
== END 2016-11-02 13:40 | disposition home or self-care (01) ==
LOC: MSI 05:30
PROVIDERS: ADMIT Internal Medicine; ATTEND Internal Medicine
DX: K83.1 Obstruction of bile duct (principal); R65.11 Systemic inflammatory response syndrome (SIRS) of non-infectious origin with acute organ dysfunction; Q44.2 Atresia of bile ducts; K83.0 Cholangitis; R17 Unspecified jaundice; E87.6 Hypokalemia; Z88.6 Allergy status to analgesic agent; Z90.49 Acquired absence of other specified parts of digestive tract
CPT/HCPCS: 36415-UA; 76700-TC; 80048-TC; 80053-TC; 80074-90; 80076-TC; 83690-TC; 85025-TC; 85610-TC; 85730-TC; 86141-TC; J0295; J1200; J1644; J7030; Z7610-TC

== ENCOUNTER 2018-03-05 19:16 | Emergency (ER) | payer MEDICAID ==
--- NOTE | 2018-03-05 19:47 | ED Physician Chart ---
ED Chief Complaint/HPI - Patient Information Date Seen:: 03/05/18 Time Seen:: 19:31 Chief Complaint:: Abdominal pain History of Present Illness:: 22 yo female with history of liver disease. A year ago, due to jaundice and abdominal, patient was admitted to [facility]. IV and oral antibiotics for 3 weeks. Patient became symptom free for 1 year and 3 months. Patient then developed scleral icterus. After treated with Amoxicillin 750mg for a week, the icterus cleared. Two weeks later, jaundice and icterus returned and persisted for two months until now. GI specialist Dr. Langford referred patient to a professor of mathematics and the appointment had been made on 05/01/18. About a month and half ago, patient visited [facility] ER due to abdominal pain, hepatitis panel was negative. Dr. Langford ordered MRCP on 02/04/18 which showed increased billiary ductal dilatation. About 4 days ago, patient developed epigastric abdominal pain with nausea, but no vomiting or fever. In addition, patient had itchy and plaque-shaped rashes on anterior neck, b/l upper extremities, and right upper abdomen for 3 weeks. The rashes started 4 days after taking cholestyramine which was stopped 3 days later, but rashes became worse. Allergies:: Allergies Allergy/AdvReac Type Severity Reaction Status Date / Time acetaminophen Allergy Severe Verified 03/05/18 19:25 ED Review of Systems - Review of Systems General/Constitutional: No fever Skin: Skin lesions Head: Headache Eyes: No pain ENT: No nasal drainage Neck: No neck pain Cardio Vascular: No chest pain Pulmonary: No SOB GI: Nausea Musculoskeletal: Bone or joint pain Neurological: No focal symptoms ED Past Medical History - Past Medical History Past Medical History: Other (Biliary ductal dilitation) Social History: Non Smoker, No Alcohol, No Drug Use Surgical History: other (Kasai Portoenterostomy for biliary atresia at childhood ) Family Medical History - Family Member Mother History Unknown: Yes ED Physical Exam - Physical Examination General/Constitutional: Awake, Alert Head: Atraumatic Eyes: PERRL Other Eyes comments:: scleral icterus Other Skin comments:: Jaundice ENMT: Nasal exam nl Neck: No nuchal rigidity Respiratory: Clear to Auscultation Cardio Vascular: RRR, No murmur, gallop, rubs, NL S1 S2 Other GI comments:: Epigastric tenderness Extremities: normal strength in all extremities Neuro/Psych: No focal deficits ED Labs/Radiology/EKG Results - Lab Results Results: Laboratory Last Values WBC 6.4 Th/cmm (4.8-10.8) 03/05/18 20:05 RBC 3.98 Mil/cmm (3.80-5.10) 03/05/18 20:05 Hgb 13.7 gm/dL (12-16) 03/05/18 20:05 Hct 39.0 % (41.0-60) L 03/05/18 20:05 MCV 97.8 fl (81-100) 03/05/18 20:05 MCH 34.3 pg (27.0-31.0) H 03/05/18 20:05 MCHC Differential 35.1 pg (28.0-36.0) 03/05/18 20:05 RDW 13.6 % (11.5-20.0) 03/05/18 20:05 Plt Count 247 Th/cmm (150-400) 03/05/18 20:05 MPV 7.4 fl 03/05/18 20:05 Neutrophils % 66.7 % (40.0-80.0) 03/05/18 20:05 Lymphocytes % 24.3 % (20.0-50.0) 03/05/18 20:05 Monocytes % 6.9 % (2.0-10.0) 03/05/18 20:05 Eosinophils % 1.5 % (0.0-5.0) 03/05/18 20:05 Basophils % 0.6 % (0.0-2.0) 03/05/18 20:05 PT 10.3 SECONDS (9.5-11.5) 03/05/18 20:05 INR 0.99 (0.5-1.4) 03/05/18 20:05 PTT (Actin FS) 28.1 SECONDS (26.0-38.0) 03/05/18 20:05 Sodium 133 mEq/L (136-145) L 03/05/18 20:05 Potassium 3.5 mEq/L (3.5-5.1) 03/05/18 20:05 Chloride 101 mEq/L (98-107) 03/05/18 20:05 Carbon Dioxide 22.5 mEq/L (21.0-31.0) 03/05/18 20:05 Anion Gap 13.0 (7.0-16.0) 03/05/18 20:05 BUN 8 mg/dL (7-25) 03/05/18 20:05 Creatinine 0.7 mg/dL (0.6-1.2) 03/05/18 20:05 Est GFR ( Amer) > 60.0 ml/min (>90) 03/05/18 20:05 Est GFR (Non-Af Amer) > 60.0 ml/min 03/05/18 20:05 BUN/Creatinine Ratio 11.4 03/05/18 20:05 Glucose 90 mg/dL (70-105) 03/05/18 20:05 Calcium 9.3 mg/dL (8.6-10.3) 03/05/18 20:05 Magnesium 2.2 mg/dL (1.9-2.7) 03/05/18 20:05 Total Bilirubin 8.8 mg/dL (0.3-1.0) H 03/05/18 20:05 AST 86 U/L (13-39) H 03/05/18 20:05 ALT 130 U/L (7-52) H 03/05/18 20:05 Alkaline Phosphatase 507 U/L (34-104) H 03/05/18 20:05 Total Protein 8.2 gm/dL (6.0-8.3) 03/05/18 20:05 Albumin 4.3 gm/dL (3.7-5.3) 03/05/18 20:05 Globulin 3.9 gm/dL 03/05/18 20:05 Albumin/Globulin Ratio 1.1 (1.0-1.8) 03/05/18 20:05 Amylase 31 U/L (29-103) 03/05/18 20:05 Lipase 13 U/L (11-82) 03/05/18 20:05 Urine Source RANDOM 03/05/18 19:30 Urine Color YELLOW 03/05/18 19:30 Urine Clarity CLEAR (CLEAR) 03/05/18 19:30 Urine pH 5.5 (4.6 - 8.0) 03/05/18 19:30 Ur Specific [place] 1.015 (1.005-1.030) 03/05/18 19:30 Urine Protein NEGATIVE mg/dL (NEGATIVE) 03/05/18 19:30 Urine Glucose (UA) NEGATIVE mg/dL (NEGATIVE) 03/05/18 19:30 Urine Ketones NEGATIVE mg/dL (NEGATIVE) 03/05/18 19:30 Urine Blood NEGATIVE (NEGATIVE) 03/05/18 19:30 Urine Nitrate NEGATIVE (NEGATIVE) 03/05/18 19:30 Urine Bilirubin SMALL (NEGATIVE) H 03/05/18 19:30 Urine Urobilinogen 0.2 E.U./dL (0.2 - 1.0) 03/05/18 19:30 Ur Leukocyte Esterase NEGATIVE (NEGATIVE) 03/05/18 19:30 Urine RBC 2-5 /hpf (0-5) 03/05/18 19:30 Urine WBC 0-2 /hpf (0-5) 03/05/18 19:30 Ur Epithelial Cells FEW /lpf (FEW) 03/05/18 19:30 Urine Bacteria 1+ /hpf (NONE SEEN) H 03/05/18 19:30 POC Ur Test Negative 03/05/18 19:48 - Radiology Results Results: CT abdomen/pelvis with and without contrast: pneumobilia, hyperdense focus near the chanelle hepatis, right adenexal fullness ED Assessment - Assessment General Assessment: Abdominal pain Jaundice Abnormal liver enzyme Possible biliary obstruction History of Kasai portoenterostomy for biliary atresia Hyponatremia Urticaria Assessment/Comments:: CBC, CMP, UA CT abdomen/pelvis with and without contrast NS 1L IV bolus Pantoprazole 40mg IV Solu-Medrol 125mg IV Benadryl 25mg PO D/c home Benadryl 25mg OTC PO prn for itchiness F/u PCP and GI/professor of mathematics KRISTIN ED Septic Shock - . Is Septic Shock (SBP<90, OR Lactate>4 mmol\L) present?: No ED Reassessment (Disposition) - Reassessment Reassessment Condition:: Improved - Patient Disposition Discharge/Transfer:: Home ED Discharge Plan - Patient Disposition Admit/Discharge/Transfer: PT DISCHARGED HOME Instructions: Abdominal Pain, [id number] Additional Instructions: FOLLOW UP WITH YOUR PRIMARY MEDICAL DOCTOR AND POSSIBLY GET A REFERRAL TO A GASTROINTESTINAL SPECIALIST K[facility]STIN
[2018-03-05 20:15] LABS: % BASOPHILS 0.6 % (0.0-2.0); % EOSINOPHILS 1.5 % (0.0-5.0); % LYMPHOCYTES 24.3 % (20.0-50.0); % MONOCYTES 6.9 % (2.0-10.0); % NEUTROPHILS 66.7 % (40.0-80.0); EOSINOPHILE ABSOLUTE 0.1 Th/cmm (0.1-0.4); HEMOGLOBIN 13.7 gm/dL (12-16); LYMPHOCYTE ABSOLUTE 1.6 Th/cmm (1.5-3.0); MEAN CELL VOLUME 97.8 fl (81-100); MEAN CORPUSCULAR HEMOGLOBIN 34.3 pg (27.0-31.0); MEAN CORPUSCULAR HGB CONC 35.1 pg (28.0-36.0); MEAN PLATELET VOLUME 7.4 fl; MONOCYTE ABSOLUTE 0.4 Th/cmm (0.3-1.0); NEUTROPHILE ABSOLUTE 4.3 Th/cmm (1.8-8.0); PLATELET COUNT 247 Th/cmm (150-400); RED BLOOD COUNT 3.98 Mil/cmm (3.80-5.10); RED CELL DISTRIBUTION WIDTH 13.6 % (11.5-20.0); WHITE BLOOD COUNT 6.4 Th/cmm (4.8-10.8)
[2018-03-05 20:32] LABS: INR 0.99 (0.5-1.4); PROTHROMBIN TIME (TEST) 10.3 SECONDS (9.5-11.5)
[2018-03-05 20:40] LABS: ALB/GLOB RATIO 1.1 (1.0-1.8); ALBUMIN 4.3 gm/dL (3.7-5.3); ALKALINE PHOSPHATASE 507 U/L (34-104); AMYLASE SERUM 31 U/L (29-103); BILIRUBIN,TOTAL 8.8 mg/dL (0.3-1.0); BUN - UREA NITROGEN 8 mg/dL (7-25); CALCIUM SERUM 9.3 mg/dL (8.6-10.3); CARBON DIOXIDE 22.5 mEq/L (21.0-31.0); CHLORIDE 101 mEq/L (98-107); CREATININE - SERUM 0.7 mg/dL (0.6-1.2); GFR AFRICAN-AMERICAN > 60.0 ml/min (>90); GFR NON AFRICAN-AMERICAN > 60.0 ml/min; GLUCOSE 90 mg/dL (70-105); LIPASE 13 U/L (11-82); MAGNESIUM 2.2 mg/dL (1.9-2.7); POTASSIUM SERUM 3.5 mEq/L (3.5-5.1); SGOT 86 U/L (13-39); SGPT/ALT 130 U/L (7-52); SODIUM SERUM 133 mEq/L (136-145); TOTAL PROTEIN,SERUM 8.2 gm/dL (6.0-8.3)
[2018-03-05 20:49] LABS: URINE MICROSCOPIC INDICATED? YES; URINE SOURCE RANDOM
[2018-03-05 20:56] LABS: URINE BILIRUBIN SMALL (NEGATIVE); URINE BLOOD NEGATIVE (NEGATIVE); URINE CLARITY CLEAR (CLEAR); URINE COLOR YELLOW; URINE GLUCOSE (UA) NEGATIVE (NEGATIVE); URINE KETONE NEGATIVE (NEGATIVE); URINE LEUKOCYTE ESTERASE NEGATIVE (NEGATIVE); URINE NITRATE NEGATIVE (NEGATIVE); URINE PH 5.5 (4.6 - 8.0); URINE PROTEIN NEGATIVE (NEGATIVE); URINE UROBILINOGEN 0.2 E.U./dL (0.2 - 1.0)
[2018-03-05] MEDS ORDERED: Sodium Chloride 0.9% 1,000 ML IV ONE (20:58)
[2018-03-05 21:02] LABS: URINE BACTERIA 1+ /hpf (NONE SEEN); URINE EPITHELIAL CELLS FEW /lpf (FEW); URINE WBC 0-2 /hpf (0-5)
[2018-03-05] MEDS ORDERED: IOHEXOL 300mgI/mL 100 ML VIAL ONE (23:46)
--- NOTE | 2018-03-06 11:19 | Diagnostic Imaging Report ---
CT scan of the abdomen and pelvis without intravenous contrast History: Pain Total DLP equals 525 CTDI equals 9.9 Axial sections were obtained from the xiphoid process down to the pubic symphysis. The exam of the liver demonstrates a punctate air collections near the chaenlle hepatis. The gallbladder is not seen consistent with patient's surgical history. Additional changes of pneumobilia should be correlated with the surgical history. Faint hypodensity also noted in the chanelle hepatis region. Exact etiology uncertain. Again, the finding should be correlated clinically. Sonography may be helpful. The spleen appears normal. No abnormalities are seen in the region of the pancreas. The kidneys appear normal bilaterally. The exam of the pelvis demonstrates preservation of normal fat planes. No abnormal soft tissue masses. No abnormal fluid collections. Impression: 1. Nonvisualization of the gallbladder consistent with patient's surgical history 2. Small foci of air within the chanelle hepatis region near the left lobe of the liver (pneumobilia). The findings should be correlated clinically and with the surgical history. 3. Small amorphous hyperdense focus near the chanelle hepatis. Exact etiology uncertain. A follow-up CT scan with intravenous and oral contrast a be helpful. Sonography may also be beneficial.
--- NOTE | 2018-03-06 11:24 | Diagnostic Imaging Report ---
CT scan abdomen and pelvis with intravenous contrast HISTORY: Pain Total DLP equals 552 CTDI equals 10.5 Following administration of intravenous contrast, axial sections were obtained from the xiphoid process down to the pubic symphysis. Exam is compared with the prior noncontrast CT scan performed earlier in the day (2238 hours). The liver exhibits a bulbous contour. There appears to be somewhat heterogeneous hepatic parenchyma. Correlation with laboratory data recommended. Changes of pneumobilia noted. The gallbladder is not seen consistent with the patient's surgical history. The previously noted subtle hyperdense focus near the chanelle hepatis cannot be identified on this exam. Exact etiology remains uncertain. A dedicated [address] scan of the liver may be helpful. Sonography may also be beneficial. The spleen appears normal. No focal amenities seen in the region of the pancreas or kidneys. The exam of the pelvis demonstrates mild right adnexal fullness with hypodensity. Changes may be related to ovarian cystic change. No free fluid. IMPRESSION: 1. Pneumobilia. Nonvisualization of the gallbladder consistent with patient's surgical history. 2. Somewhat heterogeneous hepatic parenchyma. Finding should be correlated clinically and with laboratory data. 3. Previously noted slightly hyperdense focus near the chanelle hepatis on a noncontrast CT scan performed earlier in the day cannot be visualized. The etiology and significance remains uncertain. A dedicated [address] scan of the liver may provide additional assessment. Sonography may also be helpful. 4. Right adnexal fullness with hypodensity probably related to ovarian cystic changes.
== END 2018-03-06 01:50 | disposition home or self-care (01) ==
LOC: ER 19:16
DX: R17 Unspecified jaundice (principal); E87.1 Hypo-osmolality and hyponatremia; L50.9 Urticaria, unspecified; R79.89 Other specified abnormal findings of blood chemistry; Z88.8 Allergy status to other drugs, medicaments and biological substances
CPT/HCPCS: 99285; 96374; 74176; 74177; 36415; 85025; 85610; 81001; 82150; 81025; 83690; 83735; 80053; C9113; J2930; J7030; Q9967